=== PATIENT | female | born 1950 | race Two or more races ===

== ENCOUNTER 2018-03-31 10:52 | Outpatient (CLI) | payer OTHER ==
[~2018-03-31 10:52] MED LIST: SYNTHROID50 MCG
== END 2018-03-31 10:54 | disposition home or self-care (01) ==
LOC: RAD 501 10:52
DX: M54.5 Low back pain (principal)

== ENCOUNTER 2021-01-30 12:25 | Outpatient (CLI) | payer OTHER | END 2021-01-30 12:28 | disposition home or self-care (01) | LOC: NUCLEAR 12:25 | PROVIDERS: ATTEND Family Medicine | DX: M81.0 Age-related osteoporosis without current pathological fracture (principal) ==

== ENCOUNTER 2024-02-28 08:20 | Outpatient (CLI) | payer OTHER | END 2024-02-28 08:29 | disposition home or self-care (01) | LOC: SONOGRAMA 08:20 | PROVIDERS: ATTEND Family Medicine | DX: K80.80 Other cholelithiasis without obstruction (principal); E04.0 Nontoxic diffuse goiter; R22.1 Localized swelling, mass and lump, neck ==